=== PATIENT | female | born 1945 | race Caucasian/White ===

== ENCOUNTER 2016-12-11 08:47 | Day surgery (SDC) | payer OTHER, MEDICARE ==
[~2016-12-11 08:47] MED LIST: ADVAIR 25028 BLISTE1 PO; ALBUTEROL SULF8.5 GM IH; ASPIR-LOW81 MG PO; ASPIRIN EC81 MG PO; B COMPLETE1 EACH PO; COUMADIN3 MG PO; CPAP; EFFEXOR XR150 M1 PO; EFFEXOR XR150 MG PO; IRON325 M1 PO; JANUVIA50 MG PO; LOVENOX100 MG/ SQ; METOPROLOL SUCC50 MG PO; NORCO 5/3251 TAB PO; NORVASC5 M2 PO; NORVASC5 MG PO; PHENTERMINE PO; SYMBICORT 160-1 PUFF INH; SYMBICORT 16010.2 GM IH; TOPROL XL50 M1 PO; VITAMIN C PO; [UNRECOGNIZED DRUG - OTHER] INH; [UNRECOGNIZED DRUG - REMARK]
[2016-12-11] MEDS ORDERED: PHENTERMINE HCL30 M1 PO (09:31)
[2016-12-11 09:32] LABS: BASO % 0.2 % (0-2); EOS % 3.3 % (0-7); EOSINOPHIL ABSOLUTE COUNT 0.2 tho/cmm (0.0-0.7); HCT-HEMATOCRIT 41.7 % (34.0-49.0); HGB-HEMOGLOBIN 14.2 gm/dl (12.0-15.5); LYMPH % 18.9 % (20-45); LYMPH ABSOLUTE COUNT 1.2 tho/cmm (0.8-4.5); MCH (MEAN CORPUSCULAR HGB) 30.3 pg (28.0-32.0); MCHC MEAN CORPUSCULAR HGB CONC 34.1 % (32.0-36.0); MCV (MEAN CELL VOLUME) 89.1 fl (82.0-96.0); MEAN PLATELET VOLUME 9.7 cmc (9.4-12.4); MONOCYTE ABSOLUTE COUNT 0.5 tho/cmm (0.0-1.2); NEUTROPHIL ABSOLUTE COUNT 4.5 tho/cmm (1.6-8.0); NEUTROPHIL-AUTOMATED 4.5 tho/cmm (1.6-8.0); NEUTROPHILS % 70.6 % (40-80); PLATELET COUNT 314 tho/cmm (150-450); RED BLOOD COUNT 4.68 mil/cmm (4.00-5.20); RED CELL DISTRIBUTION WIDTH 12.9 % (12.4-16.4); WHITE BLOOD COUNT 6.4 tho/cmm (4.0-10.0)
[2016-12-11] MEDS ORDERED: VENTOLIN HFA18 G2 PO (09:38)
[2016-12-11 09:39] LABS: URINE BILIRUBIN NEGATIVE (NEG); URINE BLOOD MODERATE (NEG); URINE GLUCOSE (UA) SMALL (NEG); URINE KETONE NEGATIVE (NEG); URINE LEUKOCYTE ESTERASE POSITIVE (NEG); URINE NITRITE NEGATIVE (NEG); URINE PROTEIN NEGATIVE (NEG); URINE SPECIFIC GRAVITY 1.025 (1.003-1.030)
[2016-12-11 09:43] LABS: ANION GAP 12 mmol/L (0-20); BLOOD UREA NITROGEN 18 mg/dl (6-24); CARBON DIOXIDE-VENOUS 27 mmol/L (22-32); CHLORIDE 110 mmol/l (96-110); CREATININE 0.92 mg/dl (0.50-1.10); GLUCOSE 121 mg/dL (70-110); SODIUM 145 mmol/L (135-145); eGFR VALUE FOR BLACK 73 mL/Min
[2016-12-11 09:44] LABS: URINE APPEARANCE HAZY; URINE COLOR YELLOW
[2016-12-11 09:46] LABS: URINE MUCUS 2+
[2016-12-11 09:48] LABS: URINE BACTERIA 1+
== END 2016-12-11 15:25 ==
LOC: SHSB 08:47 → ORE 11:52 → PACU 12:42 → SHSB 13:35
PROVIDERS: Urology
PROC: 0TF4XZZ Fragmentation in Left Kidney Pelvis, External Approach (ICD-10-PCS; principal; 2016-12-11)
DX: N20.0 Calculus of kidney (principal); I10 Essential (primary) hypertension; J44.9 Chronic obstructive pulmonary disease, unspecified; F41.9 Anxiety disorder, unspecified; G47.30 Sleep apnea, unspecified; E11.9 Type 2 diabetes mellitus without complications; F32.9 Major depressive disorder, single episode, unspecified; Z88.8 Allergy status to other drugs, medicaments and biological substances; Z79.899 Other long term (current) drug therapy; Z98.890 Other specified postprocedural states; Z99.89 Dependence on other enabling machines and devices; Z87.891 Personal history of nicotine dependence